=== PATIENT | female | born 2000 | race Caucasian/White ===

== ENCOUNTER 2019-10-26 07:30 | Inpatient (IN) | payer OTHER ==
[~2019-10-26] VITALS: Ht 160 cm; Wt 94.3 kg
[2019-10-26 11:03] VITALS: BP_SYST 121
[2019-10-26] MEDS ORDERED: LR 1,000 ML IV SCH (11:06)
[2019-10-26] MEDS ORDERED: OXYTOCIN/0.9 % SODIUM CHLORIDE 1,000 ML IV SCH (11:06)
[2019-10-26] MEDS ORDERED: TERBUTALINE SULFATE 1 MG/ML VIAL SUBCUT ONE (11:15)
[2019-10-26 11:58] LABS: BASOPHILS # (AUTO) 0.1 K/uL (0.0-0.2); BASOPHILS % (AUTO) 0.9 % (0.0-2.0); EOSINOPHILS % (AUTO) 0.4 % (0.0-4.0); HEMATOCRIT 39.3 % (36-48); HEMOGLOBIN 13.1 g/dL (12.0-16.0); LYMPHOCYTES # (AUTO) 2.1 K/uL (1.0-5.5); LYMPHOCYTES % (AUTO) 21.6 % (20.5-51.5); MEAN CORPUSCULAR HEMOGLOBIN 27 pg (27-31); MEAN CORPUSCULAR HGB CONC 33 % (32-36); MEAN CORPUSCULAR VOLUME 81 fL (79.0-98.0); MONOCYTES # (AUTO) 0.7 K/uL (0.0-1.0); MONOCYTES % (AUTO) 6.8 % (1.7-9.3); NEUTROPHILS # (AUTO) 6.8 K/uL (1.8-7.7); NEUTROPHILS % (AUTO) 70.3 % (40.0-70.0); PLATELET COUNT (AUTO) 225 K/uL (130-430); RED BLOOD CELL COUNT(AUTO) 4.85 MIL/uL (4.2-6.2); RED CELL DISTRIBUTION WIDTH 16.4 % (9.0-15.0); WHITE BLOOD COUNT (AUTO) 9.7 K/uL (4.8-10.8)
[2019-10-26] MEDS ORDERED: fentaNYL CITRATE/PF 100 MCG/2 ML AMP ONE (13:54)
[2019-10-26] MEDS ORDERED: ROPIVACAINE HCL/PF 0.2% 0 ML ONE (13:54)
[2019-10-26] MEDS ORDERED: METHYLERGONOVINE MALEATE 0.2 MG/ML AMP ONE (14:23)
[2019-10-26] MEDS ORDERED: OXYCODONE/ACETAMINOPHEN 5-325 TABLET PO PRN ×3 (14:30→14:45)
[2019-10-26] MEDS ORDERED: HYDROcodone/ACETAMIN 5-325 MG TAB (NORCO/ VICODIN) PO PRN ×2 (14:30→14:45)
[2019-10-26] MEDS ORDERED: OXYTOCIN/0.9 % SODIUM CHLORIDE 1,000 ML IV ONE (14:37)
[2019-10-26] MEDS ORDERED: LANOLIN 7 GM OINT. TP PRN (14:45)
[2019-10-26] MEDS ORDERED: METHYLERGONOVINE MALEATE 0.2 MG/ML AMP IM ONE (14:45)
[2019-10-26] MEDS: IBUPROFEN 600 MG TABLET PO SCH (18:03)
[2019-10-27] MEDS: IBUPROFEN 600 MG TABLET PO SCH ×5 (00:16→23:35)
[2019-10-27 07:02] LABS: HEMATOCRIT 35.3 % (36-48); HEMOGLOBIN 11.8 g/dL (12.0-16.0)
[2019-10-27] MEDS: DOCUSATE SODIUM 100 MG CAPSULE PO PRN (23:36)
[2019-10-28] MEDS: IBUPROFEN 600 MG TABLET PO SCH ×2 (06:17→12:34)
[2019-10-28] MEDS: DOCUSATE SODIUM 100 MG CAPSULE PO PRN (06:18)
== END 2019-10-28 15:41 | disposition home or self-care (01) | DRG 560 ==
LOC: SPU 07:30 → OBSVTOIN 07:30
PROVIDERS: ADMIT Obstetrics & Gynecology; ATTEND Obstetrics & Gynecology
PROC: 10E0XZZ Delivery of Products of Conception, External Approach (ICD-10-PCS; principal; 2019-10-26)
PROC: 3E033VJ Introduction of Other Hormone into Peripheral Vein, Percutaneous Approach (ICD-10-PCS; 2019-10-26)
DX: O80 Encounter for full-term uncomplicated delivery (principal); Z37.0 Single live birth; Z3A.40 40 weeks gestation of pregnancy
CPT/HCPCS: 36415; 76815; 81002-TC; 85018-TC; 85025; 86592; 86886; 86900; 86901; 87536; J2210; J2590; J3010